=== PATIENT | male | born 1985 | race Caucasian/White ===

== ENCOUNTER 2020-12-02 13:34 | Emergency (ER) | payer MEDICAID ==
[~2020-12-02] VITALS: Ht 182.9 cm; Wt 113.0 kg
[2020-12-02] MEDS ORDERED: MORPHINE SULFATE 4 MG/ML CPJ (NOT FOR IM USE) IV ONE (14:15)
[2020-12-02 15:04] LABS: CHLORIDE 107 mEq/L (98-107)
[2020-12-02 15:10] LABS: BASOPHILS % 0.4 % (0.0-2.0); EOSINOPHILS % 1.5 % (0.0-5.0); HEMATOCRIT. 43.7 % (42.0-52.0); HEMOGLOBIN. 15.2 g/dL (14.0-18.0); LYMPHOCYTES % 17.5 % (20.0-50.0); MEAN CORPUSCULAR HEMOGLOBIN 29.6 pg (28.0-32.0); MEAN CORPUSCULAR VOLUME 85.1 fL (80.0-94.0); MONOCYTES % 5.6 % (2.0-8.0); PLATELET 273 x1000/uL (130-400); RED BLOOD CELL COUNT 5.13 mill/uL (4.7-6.1); RED CELL DISTRIBUTION WIDTH 14.5 % (11.6-14.6)
[2020-12-02] MEDS ORDERED: HYDROMORPHONE HCL/PF 2MG/ML CPJ IV ONE (16:45)
[2020-12-02] MEDS ORDERED: HYDROCODONE/ACETAMINOPHEN 10/325MG TABLET PO ONE (19:15)
[2020-12-02] MEDS ORDERED: IBUP-2030 MT (19:42)
[2020-12-02] MEDS ORDERED: HYDR-4348 MT (19:42)
[2020-12-02 20:30] VITALS: BP 118/67
[2020-12-02] MEDS ORDERED: IOHEXOL-350 100 ML BOTTLE ONE (23:28)
== END 2020-12-02 20:30 | disposition home or self-care (01) ==
LOC: ER 13:34
DX: S89.81XA Other specified injuries of right lower leg, initial encounter (principal); M54.5 Low back pain; W11.XXXA Fall on and from ladder, initial encounter; Y93.H3 Activity, building and construction; Y92.018 Other place in single-family (private) house as the place of occurrence of the external cause; F17.210 Nicotine dependence, cigarettes, uncomplicated; F17.290 Nicotine dependence, other tobacco product, uncomplicated
CPT/HCPCS: 36415; 72100; 72191; 72192; 73650; 73706; 80053; 85025; 96374; 96375; 99285; J1170; J2270; L1830; Q9967; Z7610

== ENCOUNTER 2023-06-21 07:35 | Emergency (ER) | payer MEDICAID ==
[~2023-06-21] VITALS: Ht 182.9 cm; Wt 136.0 kg
[~2023-06-21 07:35] MED LIST: HYDR-4348 MT; IBUP-2030 MT
[2023-06-21 07:42] VITALS: O2SAT 98
[2023-06-21] MEDS ORDERED: IBUPROFEN 400MG TABLET PO ONE (08:30)
[2023-06-21] MEDS ORDERED: ACETAMINOPHEN 325MG TABLET PO ONE (08:30)
[2023-06-21] MEDS ORDERED: PROPOFOL 200MG/20ML VIAL IV PRN (09:45)
[2023-06-21] MEDS ORDERED: KETAMINE HCL 50 MG/ML 10ML IV ONE (09:45)
[2023-06-21] MEDS ORDERED: ONDANSETRON HCL 4MG/2ML INJ IV ONE (09:45)
[2023-06-21] MEDS ORDERED: KETAMINE HCL 50 MG/ML 10ML IV NR (10:30)
[2023-06-21] MEDS ORDERED: MORPHINE SULFATE 4 MG/ML CPJ (NOT FOR IM USE) IV ONE (13:00)
[2023-06-21] MEDS ORDERED: NAPR375T5 MT (13:44)
[2023-06-21 14:00] VITALS: BP 144/88; PULSE 87; RESP 17; TEMP 98.1
== END 2023-06-21 14:24 | disposition home or self-care (01) ==
LOC: ER 07:35
DX: S43.014A Anterior dislocation of right humerus, initial encounter (principal); W19.XXXA Unspecified fall, initial encounter; Y93.89 Activity, other specified; Y92.89 Other specified places as the place of occurrence of the external cause; Y99.8 Other external cause status
CPT/HCPCS: 73020; 73030; 23650; 96374; 96375; 99152; 99285; J3490; J2405; J2704; J2270; Z7610 ×5